=== PATIENT | female | born 1990 | race Hispanic/Latino ===

== ENCOUNTER 2023-12-09 09:55 | Emergency (ER) | payer BC ==
[~2023-12-09] VITALS: Ht 154.9 cm; Wt 62.6 kg
[2023-12-09 10:02] VITALS: TEMP 98.5
[2023-12-09] MEDS: SODIUM CHLORIDE 0.9% 1000ML 1,000 ML IV STA (10:51)
[2023-12-09 11:03] LABS: BASOPHILS % 0.5 % (0.0-1.0); EOSINOPHILS # (AUTO) 0.1 (0.0-0.4); EOSINOPHILS % 0.8 % (0.0-6.0); HEMATOCRIT 43.6 % (34.2-44.1); HEMOGLOBIN 14.3 g/dL (12.0-16.0); LYMPHOCYTES # (AUTO) 1.5 (1.0-3.2); LYMPHOCYTES % 22.5 % (18.0-39.1); MEAN CORPUSCULAR HEMOGLOBIN 31.1 pg (28-32); MEAN CORPUSCULAR HGB CONC 32.8 g/dL (31-35); MEAN CORPUSCULAR VOLUME 94.8 fL (81-99); MONOCYTES # (AUTO) 0.4 (0.2-0.8); MONOCYTES % 6.3 % (4.4-11.3); NEUTROPHILS # (AUTO) 4.6 (2.1-6.9); NEUTROPHILS % 69.7 % (38.7-80.0); PLATELET COUNT 205 x10e3/uL (140-360); RED CELL DISTRIBUTION WIDTH 11.7 % (11.7-14.4); WHITE BLOOD COUNT 6.62 x10e3/uL (4.8-10.8)
[2023-12-09 11:14] LABS: PROTHROMBIN TIME 13.7 seconds (11.9-14.5)
[2023-12-09 11:15] LABS: PARTIAL THROMBOPLASTIN TIME 26.7 seconds (23.8-35.5)
[2023-12-09 11:24] LABS: ALANINE AMINOTRANSFERASE 16 IU/L (0-55); ALBUMIN/GLOBULIN RATIO 1.2 (0.8-2.0); ALKALINE PHOSPHATASE 57 IU/L (40-150); BILIRUBIN,TOTAL 0.4 mg/dL (0.2-1.2); BLOOD UREA NITROGEN 11 mg/dL (7-26); BUN/CREATININE RATIO 15 (6-25); CALCIUM 9.4 mg/dL (8.4-10.2); CREATININE, SERUM 0.72 mg/dL (0.57-1.11); EST GLOMERULAR FILTRATION RATE 114 ML/MIN (>=60); GLUCOSE 100 mg/dL (74-118); MAGNESIUM 2.1 MG/DL (1.3-2.1); TOTAL PROTEIN 7.4 g/dL (6.5-8.1)
[2023-12-09 11:29] LABS: CHLORIDE 106 mmol/L (101-111); POTASSIUM 4.3 mmol/L (3.0-5.1); SODIUM 133 mmol/L (128-145)
[2023-12-09 11:30] LABS: ANION GAP 2.3 mmol/L (8-16); CARBON DIOXIDE 29 mmol/L (18-33)
[2023-12-09 11:45] LABS: THYROID STIMULATING HORMONE 1.578 uIU/mL (0.350-4.940)
[2023-12-09 11:46] LABS: TROPONIN I < 0.001 ng/mL (0-0.300)
[2023-12-09 11:49] VITALS: PULSE 90; RESP 18; O2SAT 98
== END 2023-12-09 11:50 | disposition home or self-care (01) ==
LOC: ER 10:02
DX: R07.89 Other chest pain (principal); F41.9 Anxiety disorder, unspecified; F32.A Depression, unspecified
CPT/HCPCS: 36415; 71045; 80053; 83735; 84443; 84484; 84702; 85025; 85379; 85610; 85730; 93005; 99283; J7030